=== PATIENT | female | born 1955 | race Caucasian/White ===

== ENCOUNTER → 2018-02-20 12:58 | Outpatient (CLI) | payer OTHER, SELFPAY ==
[2018-02-20 13:49] LABS: Add Manual Diff / Slide Review NO; Basophils Percent Auto 0.4 % (0-2); Eosinophils Percent Auto 0.9 % (2-4); Hematocrit 42.4 % (36-46); Hemoglobin 14.1 g/dL (12.0-16.0); Lymphocytes Percent Auto 37.6 % (25-40); Mean Corpuscular HGB Conc 33.3 % (30-36); Mean Corpuscular Hemoglobin 29.5 PG (26-34); Mean Corpuscular Volume 88.4 fL (80-100); Monocytes Percent Auto 7.6 % (3-14); Neutrophils Absolute Auto 3600 /uL (3000-5900); Neutrophils Percent Auto 53.5 % (50-75); Platelet Count 367 X10^3/uL (150-400); Red Cell Distribution Width 13.4 % (11.6-14.8); White Blood Cell Count 6.8 X10^3/uL (4.5-11.0)
[2018-02-20 13:55] LABS: Alanine Aminotransferase 21 IU/L (9-52); Albumin 4.3 g/dL (3.5-5.0); Albumin Globulin Ratio 1.5 (1.0-2.8); Alkaline Phosphatase 70 U/L (38-126); Aspartate Aminotransferase 14 IU/L (14-36); Bilirubin Total 0.5 mg/dL (0.2-1.3); Blood Urea Nitrogen 12 mg/dL (7-17); Calcium 9.4 mg/dL (8.4-10.2); Carbon Dioxide 32 mmol/L (22-32); Chloride 101 mmol/L (98-107); Estimated Glomerular Filt Rate > 60.0 mL/min (>60); Globulin 2.9 g/dL (1.7-4.1); Glucose 77 mg/dL (80-110); HEMOLYSIS < 15 (0-50); Potassium 4.4 mmol/L (3.4-5.1); Sodium 144 mmol/L (137-145); Total Protein 7.2 g/dL (6.3-8.2)
== END ==
PROVIDERS: PCP Physician Assistant; Visit Provider Physician Assistant
DX: I10 Essential (primary) hypertension (principal)
CPT/HCPCS: 36415; 80053; 85025

== ENCOUNTER 2018-04-16 07:16 | Day surgery (SDC) | payer OTHER, SELFPAY ==
--- NOTE | 2018-04-16 | PATH_ITS ---
[facility] Accession Number: [id number] . 01 Material submitted: . PART A: RIGHT COLON POLYP PART B: TRANSVERSE COLON POLYP AT 70 . 02 Diagnosis: A. Right Colon, Polyp, Biopsy: Tubular adenoma. . B. Transverse Colon, Polyp at 70 cm, Biopsy: Sessile serrated adenoma. MRV/04/17/2018 . 02 Electronically signed: . Connie Fish MD, Pathologist NPI- [id number] . 01 Gross description: . Received two formalin-filled containers, both labeled with the patient's name: . A. In a container labeled right colon polyp at 90, the specimen consists of a 0.3 cm portion of tissue, entirely submitted in cassette A. B. In a container labeled transverse colon polyp at 70, the specimen consists of a 0.5 cm portion of tissue, entirely submitted in cassette B. ([id number]) /FRR . 02 Pathologist provided ICD-10: D12.3, D12.6 . 02 CPT . 291582, 314415 Performed at: 01 [facility] [address] [place] [address], [place], [place] [id number] MD Alex Schwartz MD Phone: [phone] Performed at: 02 [facility] [place] [address] [place], [place] [id number] MD Connie Fish MD Phone: [phone]
[2018-04-16 07:33] VITALS: BP 153/99; PULSE 93; RESP 16; TEMP 36.3; O2SAT 100; BMI 26.4
[2018-04-16] MEDS: SODIUM CHLORIDE 0.9% 1,000 ML 200 ML IV (07:40)
--- NOTE | 2018-04-16 08:22 | PM.HP.1 ---
History of Present Illness Date Patient Seen: 04/16/18 Time Patient Seen: 08:22 Chief complaint: [id number] SCREENING COLONOSCOPY Narrative: 63-year-old female who presents for colorectal screening. She has never had any type of previous screening examination. Her mother was diagnosed with colon cancer at the age of 85 however. On further history today the patient denies any recent gastrointestinal symptoms. No nausea, vomiting, loss of appetite, abdominal pain, unexplained weight loss, change in bowel habits, diarrhea, constipation, melena, hematochezia, or bright red blood per rectum. Patient History Medical History History of (Acute) Hypertension (Acute) No significant past surgical history (Acute) Family & Social History Family History: Reviewed 04/16/18 by Pritesh Grimes MD Social History: household members family Meds Home Medications Medication Instructions Recorded Confirmed Type losartan 50 mg tablet 100 mg PO DAILY 11/13/17 11/13/17 History Allergies Allergy/AdvReac Type Severity Reaction Status Date / Time amoxicillin Allergy Intermediate Rash Verified 04/16/18 07:33 lisinopril Allergy Intermediate Cough Verified 04/16/18 07:33 Review of Systems Review of Systems All systems reviewed & are unremarkable except as noted in HPI and below Exam Vital Signs (past 8 hours): - 04/16/18 07:33 Temperature 97.3 F L Pulse Rate 93 H Respiratory Rate 16 Blood Pressure 153/99 H Pulse Oximetry 100 Oxygen Delivery Method Room Air Narrative Exam Narrative: Well-nourished well-developed female in no acute distress. Alert oriented x3. Her son is at the bedside for my entire visit. Sclera nonicteric Regular rate and rhythm Abdomen soft, nondistended, nontender Extremities show no clubbing or cyanosis Objective Labs Labs: No recent laboratory or radiographic studies for review Assessment & Plan Plan: Assessment/Plan Narrative: 63-year-old female requiring colorectal screening by age criteria. She also has a family history in her mother of colon cancer, but her mother was diagnosed at a very advanced age. I recommend colonoscopy for screening purposes. Technical details of the procedure were discussed. Risks, benefits, alternatives were explained. Risks including but not limited to sedation, aspiration, bleeding, pain, missed lesion, incomplete examination, need for further radiographic studies, colonic perforation, need for major abdominal surgery, and all attendant risks of major surgery were explained at length. All questions were answered to her satisfaction, and she voiced understanding. Consent was placed on the chart. We will proceed as above.
--- NOTE | 2018-04-16 08:30 | SUR.OPER ---
glasses in labeled container to pacu with patient
[2018-04-16] MEDS: MIDAZOLAM 5 MG/5 ML VIAL IV (08:44)
[2018-04-16] MEDS: fentaNYL 250 MCG/5 ML INJ IV (08:45)
--- NOTE | 2018-04-16 08:51 | PM.OP.ENDO ---
Operative Date/Time/Diagnoses Date of procedure: 04/16/18 Time of procedure: 08:51 Pre-op diagnosis: Colorectal screening Post-op diagnosis: other (Diverticulosis and colon polyps) Procedure & Clinicians Study performed: 1. Sedation per surgeon 2. Colonoscopy with cold forceps polypectomies Same procedure as scheduled: Yes Indications: 63-year-old female who has never had any type of colorectal screening examination. She presents now for such. Colonoscopy is currently recommended. Surgeon: Pritesh Grimes Procedure Notes SCOAP/Timeout: Yes Procedure in detail: After obtaining informed consent, the patient was brought to the GI suite and placed in the left lateral decubitus position on the examination table. After placement of appropriate monitors, the patient was given incremental doses of Versed and Fentanyl until an appropriate level of sedation was achieved. A time out was held per SCOAP protocol. A digital rectal examination was performed and did not reveal any masses or obstructing lesions. The colonoscope was gently passed into the patient's anus and the entire colon navigated to the level of the cecum with minimal difficulty. Once in the cecum, the scope was withdrawn being sure to go before and beyond all mucosal folds and prominences and get an excellent examination. The findings are noted above. At the level of the rectal vault, the scope was retroflexed and the internal anal canal was examined. The scope was straightened and air aspirated from the colon. The instrument was removed from the patient's body and the procedure was concluded. The patient was allowed to awaken from sedation without difficulty and taken to the post-anesthesia care unit in good condition. Scope withdrawal time: 9:49 min Sedation minutes: 18 Findings: diverticulosis, internal hemorrhoids (Grade 2) and polyp Specimen(s): other (1. Right colon polyp at 90 cm 2. Transverse colon polyp at 70 cm) Complications: none Recommendations: Colonscopy in 5 years, High fiber diet and Will call with biopsy results Plan for aftercare: 1. Discharge home Follow up: as needed Disposition: PACU
[2018-04-16 08:53] VITALS: BP 115/75; PULSE 89; RESP 13; O2SAT 99
[2018-04-16 08:58] VITALS: BP 140/92; PULSE 90; RESP 17; O2SAT 99
[2018-04-16 09:05] VITALS: BP 127/83; PULSE 85; RESP 16; TEMP 36.2; O2SAT 100
== END 2018-04-16 09:17 | disposition home or self-care (01) ==
PROVIDERS: PCP Physician Assistant; Visit Provider Surgery
PROC: 0DJD8ZZ Inspection of Lower Intestinal Tract, Via Natural or Artificial Opening Endoscopic (ICD-10-PCS; CPT 45378; principal; 2018-04-16 08:45)
DX: Z12.11 Encounter for screening for malignant neoplasm of colon (principal); K57.30 Diverticulosis of large intestine without perforation or abscess without bleeding; K64.1 Second degree hemorrhoids; I10 Essential (primary) hypertension; D12.3 Benign neoplasm of transverse colon; D12.6 Benign neoplasm of colon, unspecified
CPT/HCPCS: 45380; 99152; J2250; J3010

== ENCOUNTER → 2020-05-08 15:27 | Outpatient (CLI) | payer MEDICARE, OTHER, SELFPAY ==
[2020-05-08] MEDS: COVID-19 VACC(MODERNA-1)/PF 100 MCG/0.5 ML VIAL IM (15:38)
== END ==
PROVIDERS: PCP Physician Assistant; Visit Provider Internal Medicine
DX: Z23 Encounter for immunization (principal)
CPT/HCPCS: 0011A; 91301

== ENCOUNTER → 2020-06-04 15:15 | Outpatient (CLI) | payer MEDICARE, OTHER, SELFPAY ==
[2020-06-04] MEDS: COVID-19 VACC #2, MRNA(MOD) 100 MCG/0.5 ML VIAL IM (15:25)
== END ==
PROVIDERS: PCP Physician Assistant; Visit Provider Internal Medicine
DX: Z23 Encounter for immunization (principal)
CPT/HCPCS: 0012A; 91301

== ENCOUNTER → 2021-03-19 15:05 | Outpatient (CLI) | payer MEDICARE, OTHER, SELFPAY ==
[2021-03-19] MEDS: COVID-19 VACC #3, MRNA(MOD) 50 MCG/0.25 ML VIAL IM (15:10)
== END ==
PROVIDERS: PCP Physician Assistant; Visit Provider Internal Medicine
DX: Z23 Encounter for immunization (principal)
CPT/HCPCS: 0013A; 91301

== ENCOUNTER → 2021-09-02 10:03 | Outpatient (CLI) | payer MEDICARE, OTHER, SELFPAY ==
--- NOTE | 2021-09-02 10:17 | DI.MG.S_ITS ---
BILATERAL DIGITAL SCREENING MAMMOGRAM 3D/2D WITH CAD: 09/02/2021 CLINICAL: Routine screening. Family history of breast cancer. Comparison is made to exam dated: 01/13/2017 mammogram - [facility]. The tissue of both breasts is heterogeneously dense. This may lower the sensitivity of mammography. Current study was also evaluated with a Computer Aided Detection (CAD) system. No significant masses, calcifications, or other findings are seen in either breast. There has been no significant interval change. IMPRESSION: NEGATIVE There is no mammographic evidence of malignancy. A 1 year screening mammogram is recommended. This exam was interpreted at Station ID: [id number]. NOTE: For mammograms, a report in lay terms will be sent to the patient. Approximately 15% of breast malignancies will not be visualized mammographically. In the management of a palpable breast mass, a negative mammogram must not discourage biopsy of a clinically suspicious lesion. Electronically Signed By: Lencho maldonado/nader:09/02/2021 13:29:43 letter sent: Normal Exam ACR BI-RADS Category 1: Negative [id number]
== END ==
PROVIDERS: PCP Physician Assistant; Referring Provider Physician Assistant; Visit Provider Physician Assistant
DX: Z12.31 Encounter for screening mammogram for malignant neoplasm of breast (principal); Z80.3 Family history of malignant neoplasm of breast
CPT/HCPCS: 77063; 77067

== ENCOUNTER → 2021-12-03 09:52 | Outpatient (CLI) | payer MEDICARE, OTHER, SELFPAY | PROVIDERS: PCP Physician Assistant; Referring Provider Physician Assistant; Visit Provider Physician Assistant | DX: M85.851 Other specified disorders of bone density and structure, right thigh (principal); Z13.820 Encounter for screening for osteoporosis; Z78.0 Asymptomatic menopausal state | CPT/HCPCS: 77080 ==

== ENCOUNTER 2024-09-19 07:21 | Day surgery (SDC) | payer MEDICARE, OTHER, SELFPAY ==
[2024-09-19 07:49] VITALS: BP 155/92; PULSE 90; RESP 16; TEMP 36.2; O2SAT 99
[2024-09-19] MEDS: LACTATED RINGERS 1,000 ML 42 ML IV (07:58)
--- NOTE | 2024-09-19 08:56 | P.HP_ITS ---
History of Present Illness History of Present Illness Date Patient Seen: 09/19/24 Time Patient Seen: 08:57 Chief complaint: History of polyps Narrative: Pia is 69-year-old woman with a history of polyps. She had a colonoscopy in [address] Grimes with findings of tubular adenomas. Her mother was diagnosed with colon cancer over the age of 80. [facility] Medical History (Updated 09/19/24 @ 08:57 by Alex Sanchez MD) History of Hypertension Surgical History No significant past surgical history Family History Mother Cancer Social History household members: family Smoking Status: Never smoker alcohol intake: current Meds Home Medications and Allergies Home Medications Medication Instructions Recorded Confirmed Type losartan 50 mg tablet 100 mg PO DAILY 11/13/17 11/13/17 History sodium,potassium,mag sulfates 17.5 See Rx Instructions PO .COMPLEX 05/16/24 Rx gram-3.13 gram-1.6 gram oral soln #354 mL (Suprep Bowel Prep Kit) Allergies Allergy/AdvReac Type Severity Reaction Status Date / Time amoxicillin Allergy Intermediate Rash Verified 04/16/18 07:33 lisinopril Allergy Intermediate Cough Verified 04/16/18 07:33 Exam Vital Signs (past 8 hours): - 09/19/24 07:49 Temperature 97.2 F L Pulse Rate 90 Respiratory Rate 16 Blood Pressure 155/92 H Pulse Oximetry 99 Oxygen Delivery Method Room Air Oxygen Delivery Method Room Air Const General: healthy appearing Assessment & Plan Assessment and plan (1) History of colon polyps: Status: Acute Plan Colonoscopy for history of polyps Time-Based Coding :: [TOTAL MINUTES] spent with patient and on the chart (including review of chart, obtaining history, exam, reviewing outside data, placing orders, documenting exam and treatment plan, and counseling patient) on [DATE]. [employer] Superintendent Document charge(s): No
--- NOTE | 2024-09-19 08:56 | PM.OP.COLON ---
Operative Date/Time/Diagnoses Date of procedure: 09/19/24 Time of procedure: 08:56 Pre-op diagnosis: History of polyps Post-op diagnosis: same Procedure & Clinicians Study performed: Colonoscopy Same procedure as scheduled: Yes Surgeon: Alex Sanchez Procedure Notes Procedure in detail: Surgeon: Alex Sanchez MD Anesthesia: Julius See [employer] OFFICER Procedure: The patient was brought to the endoscopy suite, placed in left lateral decubitus position. The patient was connected to monitoring devices. A time-out was performed. Sedation was administered. Once the patient was adequately sedated, a digital rectal exam was performed and was normal. The scope was then inserted and advanced to the cecum where the appendiceal orifice was identified and photographed. The scope was then slowly withdrawn over greater than 6 minutes. The mucosa was thoroughly inspected. No abnormalities were identified. The scope was retroflexed in the rectum. The scope was straightened and removed. The patient was awakened and brought to recovery. Scope withdrawal time: 10 minutes Sedation time: 18 minutes EBL: 0 Findings: Normal colon Post-procedure Recommendations: Colonoscopy in 5 years Disposition: PACU
[2024-09-19 09:30] VITALS: BP 98/65; PULSE 76; RESP 16; TEMP 36.1; O2SAT 94
[2024-09-19 09:35] VITALS: BP 103/72; PULSE 69; RESP 16; TEMP 36.2; O2SAT 98
== END 2024-09-19 10:05 | disposition home or self-care (01) ==
PROVIDERS: PCP Physician Assistant; Referring Provider Surgery; Visit Provider Surgery
PROC: 0DJD8ZZ Inspection of Lower Intestinal Tract, Via Natural or Artificial Opening Endoscopic (ICD-10-PCS; CPT 45378; principal; 2024-09-19 08:45)
DX: Z12.11 Encounter for screening for malignant neoplasm of colon (principal); Z86.0100 Personal history of colon polyps, unspecified
CPT/HCPCS: G0105; J2704